=== PATIENT | female | born 1990 | race Caucasian/White ===

== ENCOUNTER 2023-07-31 10:50 | Emergency (ER) | payer OTHER ==
[2023-07-31 10:56] VITALS: BMI 32.5
[2023-07-31] MEDS ORDERED: IBUPROFEN 400 MG TABLET (FP) PO ONE (11:30)
[2023-07-31] MEDS: IBUPROFEN 400 MG TABLET (FP) PO ONE (11:32)
[2023-07-31] MEDS ORDERED: LIDOCAINE 5% TOPICAL PATCH ONE (12:45)
[2023-07-31] MEDS ORDERED: ACETAMINOPHEN 325 MG TABLET (FP) ONE (12:45)
[2023-07-31] MEDS: LIDOCAINE 5% TOPICAL PATCH TP ONE (12:51)
[2023-07-31] MEDS: ACETAMINOPHEN 500 MG TABLET (FP) PO ONE (12:51)
[2023-07-31] MEDS ORDERED: METHOCARBAMOL 500 MG TABLET ONE (14:07)
[2023-07-31] MEDS: METHOCARBAMOL 500 MG TABLET PO ONE (14:09)
[2023-07-31 16:16] VITALS: BP 106/54; PULSE 51; RESP 20; TEMP 98.2
[2023-07-31] MEDS ORDERED: LIDOCAINE PATCH REMOVAL MC SCH (22:00)
== END 2023-07-31 16:31 | disposition home or self-care (01) ==
LOC: JER 10:50
DX: R51.9 Headache, unspecified (principal); R11.0 Nausea; M54.6 Pain in thoracic spine; M54.2 Cervicalgia
CPT/HCPCS: 99283-25